=== PATIENT | male | born 1965 | race American Indian/Alaskan Native ===

== ENCOUNTER 2018-07-22 17:28 | Emergency (ER) | payer OTHER ==
[2018-07-22 17:37] VITALS: RESP 18; TEMP 98.3
--- NOTE | 2018-07-22 18:17 | ED PDOC ---
HPI: Skin/Bite Injury Time Seen by Provider: 07/22/18 17:55 Chief Complaint (Nursing): Abnormal Skin Integrity Chief Complaint (Provider): Abnormal Skin Integrity History Per: Patient History/Exam Limitations: no limitations Onset/Duration Of Symptoms: Days (6x months) Current Symptoms Are (Timing): Still Present Quality Of Symptoms: Painful, Itching Severity: Moderate Additional Complaint(s): 52 year old male with no past medical history presents to the ED for an evaluation of skin rash around the mouth that started 6x months ago. Patient states that the skin around his mouth started with a minor irritation at onset, has worsened since, and is now itchy and swollen x6 months. He tried to treat symptoms himself with coconut oil and oatmeal, with no relief. Patient states that he shaves the area with a razor. Otherwise (-) fevers. PMD: None Past Medical History Reviewed: Historical Data, Nursing Documentation, Vital Signs Vital Signs: Last Vital Signs Temp 98.3 F 07/22/18 17:35 Pulse 73 07/22/18 17:35 Resp 18 07/22/18 17:35 BP 160/100 H 07/22/18 17:35 Pulse Ox 95 07/22/18 17:35 - Medical History PMH: No Chronic Diseases - Surgical History Surgical History: No Surg Hx - Family History Family History: States: No Known Family Hx - Social History Current smoker - smoking cessation education provided: No Alcohol: Occasional Drugs: Denies - Home Medications Home Medications: Ambulatory Orders Medication Instructions Recorded Cephalexin [Keflex] 500 mg PO TID #30 capsule 07/22/18 RX: Ibuprofen [Motrin Tab] 800 mg PO Q8 PRN #21 tab 07/22/18 RX: Mupirocin 2% Cream [Bactroban 1 applic TOP Q8 #1 tube 07/22/18 Cream] - Allergies Allergies/Adverse Reactions: Allergies Allergy/AdvReac Type Severity Reaction Status Date / Time No Known Allergies Allergy Verified 07/22/18 17:35 Review of Systems ROS Statement: Except As Marked, All Systems Reviewed And Found Negative Constitutional: Negative for: Fever Skin: Positive for: Rash (irritation around mouth: itching, swelling, irri tation.) Physical Exam - Reviewed Nursing Documentation Reviewed: Yes Vital Signs Reviewed: Yes - Physical Exam Comments: GENERAL APPEARANCE: Patient is awake, alert, oriented x 3, in no acute distress. Resting comfortably. SKIN: Warm, dry; (-) cyanosis. NECK: Supple, FROM (-) lymphadenopathy (-) tenderness ENT: Dry cracked, erythematous skin to perioral region, chin, and philtrum with yellow crusted drainage (+) minimal tenderness to perioral region (-) edema, (-) surrounding erythema or cellulitis, (-) warmth. Pharynx: clear, uvula midline, (-) exudate, (-) erythema. Dentition non tender. CHEST AND RESPIRATORY: (-) rales, (-) rhonchi, (-) wheezes; breath sounds equal bilaterally. Respirations even and nonlabored. HEART AND CARDIOVASCULAR: (-) irregularity NEURO AND PSYCH: Mental status as above. Gait: steady. Speech: clear. (-) facial asymmetry (-) aphasia. - ECG O2 Sat by Pulse Oximetry: 95 (RA) Pulse Ox Interpretation: Normal Medical Decision Making Medical Decision Makin:55 Clinical impression: 52 year old male with a facial rash, to consider impetigo. Initial plan: - keflex 500 mg PO - toradol 30 mg IM - re-evaluation 1920 Repeat BP: 145/96 On re-evaluation, patient reports improvement of symptoms. On exam, patient remains AAOx3, in no acute distress. Lungs clear to auscultation, cardiac RRR, repeat neuro exam shows no focal findings. Vitals stable. Educated on wound care. Lab /Diagnostic results d/w the patient in great detail. Diagnosis of facial rash, to consider impetigo d/w the patient. Based on history, exam and diagnostic results, plan will be for outpatient follow up. Patient instructed to follow-up with pmd / referral provided / the clinic in 1- 2 days without fail. Advised to take medication as prescribed. Return to the emergency room at any time for any new or worsening symptoms. Patient states he fully agrees with and understands discharge instructions. States that he agrees with the plan and disposition. Verbalized and repeated discharge instructions and plan. I have given the patient opportunity to ask any additional questions. Scribe Attestation: Documented by Neetu Whelan, acting as a scribe for Neetu Mckinnon Provider Scribe Attestation: All medical record entries made by the Scribe were at my direction and personally dictated by me. I have reviewed the chart and agree that the record accurately reflects my personal performance of the history, physical exam, medical decision making, and the department course for this patient. I have also personally directed, reviewed, and agree with the discharge instructions and disposition Disposition - Clinical Impression Clinical Impression: Rash of face, Impetigo - Patient ED Disposition Is Patient to be Admitted: No Counseled Patient/Family Regarding: Studies Performed, Diagnosis, Need For Followup, Rx Given - Disposition Referrals: [facility] [Outside] Disposition: Routine/Home Disposition Time: 19:20 Condition: STABLE Additional Instructions: The emergency medical care you received today was directed at your acute symptoms. If you were prescribed any medication, please fill it and take as directed. It may take several days for your symptoms to resolve. Return to the Emergency Department if your symptoms worsen, do not improve, or if you have any other problems. Please contact your doctor in 2 days for re-evaluation and follow up / or call one of the physicians/clinics you have been referred to that are listed on the Patient Visit Information form that is included in your discharge packet. Bring any paperwork you were given at discharge with you along with any medications you are taking to your follow up visit. Our treatment cannot replace ongoing medical care by a primary care provider (PCP) outside of the emergency department. Prescriptions: Cephalexin [Keflex] 500 mg PO TID #30 capsule RX: Ibuprofen [Motrin Tab] 800 mg PO Q8 PRN #21 tab PRN Reason: pain, inflammation RX: Mupirocin 2% Cream [Bactroban Cream] 1 applic TOP Q8 #1 tube Instructions: Skin Rash, Impetigo Forms: [employer] (Libyan) Print Language: CYMRO - POA Present On Arrival: None
[2018-07-22 19:29] VITALS: BP 145/96; PULSE 61
[2018-07-22 20:15] VITALS: O2SAT 95
== END 2018-07-22 19:31 | disposition home or self-care (01) ==
LOC: H.ER 17:28
DX: L01.00 Impetigo, unspecified (principal); R21 Rash and other nonspecific skin eruption
CPT/HCPCS: 96372; 99283; J1885